=== PATIENT | female | born 1950 | race Caucasian/White ===

== ENCOUNTER → 2021-09-09 | Outpatient (CLI) | payer MEDICARE | LOC: MRI 08:42 | DX: C21.1 Malignant neoplasm of anal canal (principal) | CPT/HCPCS: 72195 ==

== ENCOUNTER → 2021-09-30 | Outpatient (CLI) | payer MEDICARE ==
[~2021-09-30] MED LIST: HYDROCHLOROTH12.5 MG PO; OMEPRAZOLE20 MG PO; VITAMIN D325 MCG GT
== END | disposition home or self-care (01) ==
LOC: GENOP 05:30
DX: C21.0 Malignant neoplasm of anus, unspecified (principal); E78.5 Hyperlipidemia, unspecified; I10 Essential (primary) hypertension; E03.9 Hypothyroidism, unspecified; M19.90 Unspecified osteoarthritis, unspecified site; M81.0 Age-related osteoporosis without current pathological fracture; K21.9 Gastro-esophageal reflux disease without esophagitis; Z87.891 Personal history of nicotine dependence; Z88.5 Allergy status to narcotic agent; Z79.899 Other long term (current) drug therapy
CPT/HCPCS: 77001; C1769; C1788; J0690; J1642; J2405; J2704; J3010; J7030; J7040; J7120

== ENCOUNTER → 2022-01-06 | Outpatient (CLI) | payer MEDICARE | LOC: MRI 13:00 | DX: C21.1 Malignant neoplasm of anal canal (principal) | CPT/HCPCS: 72197; A9577 ==

== ENCOUNTER → 2022-03-20 | Outpatient (CLI) | payer MEDICARE ==
[2022-03-20 10:46] LABS: RED BLOOD COUNT 3.96 M/UL (4.00-5.10); WHITE BLOOD COUNT 3.8 K/UL (4.5-11.0)
== END ==
LOC: LAB 10:25
PROVIDERS: Physician Assistant
DX: M79.603 Pain in arm, unspecified (principal)
CPT/HCPCS: 36415; 85025; 85379

== ENCOUNTER → 2022-03-21 | Outpatient (CLI) | payer MEDICARE | LOC: KOH-I 13:29 | DX: R60.0 Localized edema (principal); M79.622 Pain in left upper arm | CPT/HCPCS: 93971 ==